=== PATIENT | male | born 1990 ===

== ENCOUNTER 2016-12-03 14:36 | Emergency (ER) | payer OTHER ==
[2016-12-03 14:44] VITALS: BP 135/74; PULSE 68; RESP 18; TEMP 97.4; O2SAT 100
--- NOTE | 2016-12-03 14:55 | C.PDOC ---
History Of Present Illness A 26 y/o male presents to the ER c/o right upper lip injury that occurred [employer]. Patient notes that he was at home cleaning and when he opened a closet door, an object fell out and hit his right upper lip. Patient denies no other injury, fever, chills, LOC, weakness nor numbness, or any other complaints. Time Seen by Provider: 12/03/16 14:46 Chief Complaint (Nursing): Abnormal Skin Integrity History Per: Patient History/Exam Limitations: no limitations Onset/Duration Of Symptoms: Hrs Current Symptoms Are (Timing): Still Present Location Of Injury: Right: Mouth (Right upper lip) Severity: Mild Recent travel outside of the [place]: No Past Medical History Reviewed: Historical Data, Nursing Documentation, Vital Signs Vital Signs: Last Vital Signs Temp 97.4 F L 12/03/16 14:43 Pulse 68 12/03/16 14:43 Resp 18 12/03/16 14:43 BP 135/74 12/03/16 14:43 Pulse Ox 100 12/03/16 15:13 Family History: States: Unknown Family Hx - Social History Hx Alcohol Use: No Hx Substance Use: No Review Of Systems Except As Marked, All Systems Reviewed And Found Negative. Constitutional: Positive for: Other (No other injury). Negative for: Fever, Chills ENT: Positive for: Mouth Pain (Laceration to the right upper lip) Neurological: Negative for: Weakness, Numbness, Other (LOC) Physical Exam - Physical Exam Appears: Non-toxic, No Acute Distress Skin: Warm, Dry Head: Atraumatic, Normacephalic Eye(s): bilateral: Normal Inspection Oral Mucosa: Moist Lips: No Swelling, Laceration (0.5 cm linear laceration to the right philtrum, no active bleeding) Teeth: Normal Dentition, No Tender To Palpation Neck: Normal ROM Respiratory: No Rales, No Rhonchi Neurological/Psych: Oriented x3, Normal Speech, Other (No focal deficit) ED Course And Treatment O2 Sat by Pulse Oximetry: 100 (RA) Pulse Ox Interpretation: Normal Medical Decision Making Medical Decision Making: Impression: 26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 Patient is in no acute distress and was instructed to follow up with PMD for further evaluation. Disposition Counseled Patient/Family Regarding: Diagnosis, Need For Followup - Disposition Disposition: HOME/ ROUTINE Disposition Time: 14:54 Condition: STABLE Additional Instructions: El pegamento de la piel fue utilizado para cerrar parker herida, no aplican el bel ento al hiram pues puede disolver el pegamento. El parche de pegamento se caer gradualmente en pocos martines. Instructions: Skin Adhesive Care (ED) Print Language: POLISH - POA Present On Arrival: None - Clinical Impression Clinical Impression: Laceration of face - Scribe Statement The provider has reviewed the documentation as recorded by the Scribe Víctor rodgers All medical record entries made by the Scribe were at my direction and personally dictated by me. I have reviewed the chart and agree that the record accurately reflects my personal performance of the history, physical exam, medical decision making, and the department course for this patient. I have also personally directed, reviewed, and agree with the discharge instructions and disposition.
== END 2016-12-03 15:23 | disposition home or self-care (01) ==
LOC: C.ER 14:36
DX: S01.511A Laceration without foreign body of lip, initial encounter (principal); W20.8XXA Other cause of strike by thrown, projected or falling object, initial encounter; Y92.009 Unspecified place in unspecified non-institutional (private) residence as the place of occurrence of the external cause; Z23 Encounter for immunization